=== PATIENT | female | born 1980 | race Caucasian/White ===

== ENCOUNTER → 2016-06-04 | Outpatient (CLI) | payer OTHER, SELFPAY ==
[~2016-06-04] MED LIST: GASTROGRAFIN SOLUTION 30ML (Q9963) As Ordered ONE; ISOVUE-370 76% 100ML VIAL (Q9967) As Ordered ONE
--- NOTE | 2016-06-04 11:42 | REP ---
Clinical: Right lower quadrant pain. Technique: Axial contrast enhanced images from the lung bases to the pubic symphysis using oral and 100 ml Isovue 370 intravenous contrast material with coronal and sagittal re-formations. Findings: Lung bases are clear. Visualized heart and pericardium are normal. Liver, spleen, pancreas, gallbladder, bilateral adrenal glands and kidneys are normal. There is evidence for prior gastric bypass surgery. The enteric system is without obstruction or acute inflammatory process and a normal terminal ileum and appendix are identified in the right lower quadrant. There is a presumed transient and nonacute, nonpathologic small bowel intussusception in the anterior mid abdomen (images 88 - 103) without associated bowel obstruction or mass lesion as lead point. Pelvis demonstrates normal bladder and age-appropriate uterus/left adnexa. Cystic changes to the right ovary are likely physiologic and possibly related to patient's symptoms. No pelvic fluid or ascites. No free air. No adenopathy. Vasculature is normal. Surrounding musculoskeletal structures are intact. Impression: 1. Right lower quadrant pain may be related to cystic changes to the right ovary likely physiologic and correlation is recommended. 2. Normal terminal ileum and appendix in the right lower quadrant and no free fluid, free air or obstruction is appreciated. 3. Likely transient and nonpathologic small bowel intussusception as described above without associated at adenopathy, obstruction, or mass lesion for the point. Signed by Easu Harris MD 06/04/2016 11:33 A
== END ==
LOC: M RAD 09:51
PROVIDERS: ATTEND Physician Assistant
DX: R10.813 Right lower quadrant abdominal tenderness (principal); Z98.84 Bariatric surgery status
CPT/HCPCS: 74177; Q9963; Q9967

== ENCOUNTER → 2018-07-19 | Outpatient (CLI) | payer OTHER ==
--- NOTE | 2018-07-20 02:44 | REP ---
Clinical: Patellofemoral disorder/pain. Technique: AP, lateral, bilateral oblique and sunrise views of the right knee. Findings: Mild arthritic changes of the tibiofemoral joint space include increased sclerosis to the tibial plateau with subtle cortical irregularity and early spurring/osteophyte formation. The joint space is relatively intact and normal. Lateral and sunrise views demonstrate early advanced arthritic changes of the patellofemoral joint. Specifically, there is posterior patellar sclerosis along with lateral subluxation, patellofemoral joint space narrowing, and large bulky lateral patellar osteophyte. There is no evidence for acute fracture or definite effusion. 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 Electronically Signed by Esau Harris MD 07/20/2018 02:36 A
== END ==
LOC: M WUC 18:20
PROVIDERS: ATTEND Physician Assistant
DX: M17.11 Unilateral primary osteoarthritis, right knee (principal); M22.2X1 Patellofemoral disorders, right knee

== ENCOUNTER 2020-10-16 16:08 | Emergency (ER) | payer OTHER ==
[~2020-10-16] VITALS: Ht 170.2 cm; Wt 109.8 kg
[2020-10-16] MEDS ORDERED: MULTTAB61 PO (16:29)
[2020-10-16] MEDS ORDERED: VITA250T7 PO (16:29)
[2020-10-16] MEDS ORDERED: VITAD400CA PO (16:29)
[2020-10-16 18:08] LABS: BASO # 0.1 10^3/uL (0.0-0.2); BASO % 0.7 % (0.0-1.0); EOS # 0.2 10^3/uL (0.0-0.5); HEMATOCRIT 36.9 % (36.0-47.0); HEMOGLOBIN 11.9 g/dl (12.0-15.5); LYMPH # 2.3 10^3/uL (1.5-5.0); LYMPH % 30.4 % (24.0-44.0); MEAN CORPUSCULAR HEMOGLOBIN 24.8 pg (27.0-33.0); MEAN CORPUSCULAR HGB CONC 32.2 g/dl (32.0-36.5); MEAN CORPUSCULAR VOLUME 76.9 fl (80.0-96.0); MONO # 0.8 10^3/uL (0.0-0.8); MONO % 10.1 % (2.0-8.0); NEUTROPHILS # 4.2 10^3/uL (1.5-8.5); NEUTROPHILS % 55.5 % (36.0-66.0); PLATELET COUNT, AUTOMATED 350 10^3/uL (150-450); WHITE BLOOD COUNT 7.6 10^3/uL (4.0-10.0)
[2020-10-16] MEDS ORDERED: ONDANSETRON 4MG/2ML VIAL IV ONE (18:25)
[2020-10-16] MEDS ORDERED: NS 1,000 ML IV ONE (18:25)
[2020-10-16] MEDS ORDERED: KETOROLAC 30 MG/ML 1ML VIAL IV ONE (18:25)
[2020-10-16 18:33] LABS: ALBUMIN 3.5 GM/DL (3.2-5.2); ALT/SGPT 26 U/L (12-78); BILIRUBIN,DIRECT < 0.1 MG/DL (0.0-0.2); BILIRUBIN,TOTAL 0.2 MG/DL (0.2-1.0); BLOOD UREA NITROGEN 10 MG/DL (7-18); CALCIUM LEVEL 8.5 MG/DL (8.5-10.1); CARBON DIOXIDE LEVEL 27 MEQ/L (21-32); CHLORIDE LEVEL 107 MEQ/L (98-107); CREATININE FOR GFR 0.58 MG/DL (0.55-1.30); GLOMERULAR FILTRATION RATE > 60.0 (>58); GLUCOSE, FASTING 81 MG/DL (70-100); LIPASE 177 U/L (73-393); POTASSIUM SERUM 4.2 MEQ/L (3.5-5.1); SODIUM LEVEL 140 MEQ/L (136-145); TOTAL PROTEIN 7.5 GM/DL (6.4-8.2)
--- NOTE | 2020-10-16 19:35 | REP ---
INDICATION: ruq pain COMPARISON: None. TECHNIQUE: Real time dejesus scale ultrasound examination using curved array transducer. FINDINGS: Liver is normal in contour, size, and echogenicity without focal hepatic lesions identified. Pancreas is incompletely evaluated due to interposed bowel gas. The gallbladder include solitary gallstone without wall thickening or pericholecystic fluid. No biliary ductal dilatation is appreciated and the common bile duct measures 4.7 mm diameter. Right kidney is normal in reniform shape without hydronephrosis and measures 11.8 x 5.0 x 4.8 cm. No ascites in the visualized right upper quadrant. IMPRESSION: Cholelithiasis. <Electronically signed by Esau Harris > 10/16/201930
[2020-10-16] MEDS ORDERED: ISOVUE-370 76% 100ML VIAL As Ordered ONE (19:48)
--- NOTE | 2020-10-16 21:46 | REPVR ---
PROCEDURE INFORMATION: Exam: CT Abdomen And Pelvis With Contrast Exam date and time: 10/16/2020 8:20 PM Age: 40 years old Clinical indication: Abdominal pain; Additional info: Upper abd pain TECHNIQUE: Imaging protocol: Computed tomography of the abdomen and pelvis with contrast. Radiation optimization: All CT scans at this facility use at least one of these dose optimization techniques: automated exposure control; mA and/or kV adjustment per patient size (includes targeted exams where dose is matched to clinical indication); or iterative reconstruction. Contrast material: ISOVUE 370; Contrast volume: 100 ml; Contrast route: INTRAVENOUS (IV); COMPARISON: CT ABD PELVIS WITH CONTRAST 06/04/2016 11:15 AM FINDINGS: Mediastinal space: Minimal hiatal hernia. Liver: Minimal hepatic cyst adjacent to the converging hepatic veins measuring 10 mm. The liver attenuation is 80 Hounsfield units and the spleen is 114 Hounsfield units. Gallbladder and bile ducts: Normal. No calcified stones. No ductal dilation. Pancreas: Normal. No ductal dilation. Spleen: Normal. No splenomegaly. Adrenal glands: Normal. No mass. Kidneys and ureters: Normal. No hydronephrosis. Stomach and bowel: There has been gastric bypass with collapse of the bypassed stomach. Left abdominal Andres-en-Y. There are a few sigmoid diverticula without diverticulitis. Appendix: A normal small retrocecal appendix is seen. Intraperitoneal space: Unremarkable. No free air. No significant fluid collection. Vasculature: There is minimal atherosclerotic calcification of the abdominal aorta. Lymph nodes: Unremarkable. No enlarged lymph nodes. Urinary bladder: Unremarkable as visualized. Reproductive: Right ovarian cyst measuring 4.8 x 3.8 x 3.9 cm with internal fluid fluid level suggesting hematocrit effect or hemorrhagic cyst. Bones/joints: Unremarkable. No acute fracture. Soft tissues: Unremarkable. IMPRESSION: 1. Right ovarian cyst measuring 4.8 x 3.8 x 3.9 cm with suggestion of hemorrhagic cyst with hematocrit layering. 2. Status post gastric bypass. 3. Otherwise negative CT abdomen/pelvis. Electronically signed by: Juan Womack On 10/16/2020 21:45:47 PM
[2020-10-16 22:07] VITALS: BP 154/86
[2020-10-16] MEDS ORDERED: OMEP1CAP73 PO (22:36)
[2020-10-16] MEDS ORDERED: GI COCKTAIL 50ML BTL(HYOSCYAMINE/MAALOX/LIDOCAINE VISCOUS)(1:3:1) PO ONE (22:40)
== END 2020-10-16 22:50 | disposition home or self-care (01) ==
LOC: M ED 16:08
DX: R10.13 Epigastric pain (principal); K80.20 Calculus of gallbladder without cholecystitis without obstruction; N83.01 Follicular cyst of right ovary; R11.2 Nausea with vomiting, unspecified; R05 Cough; R51.9 Headache, unspecified; Z98.84 Bariatric surgery status; Z88.1 Allergy status to other antibiotic agents; Z79.899 Other long term (current) drug therapy
CPT/HCPCS: 74177; 76705; 80048; 80076; 81001; 83690; 85025; 96361; 96374; 96375; 99283; J1885; J2405; Q9967

== ENCOUNTER 2022-06-03 07:44 | Inpatient (IN) | payer OTHER ==
[~2022-06-03] VITALS: Ht 167.6 cm; Wt 115.7 kg
[~2022-06-03 07:44] MED LIST changes: -GASTROGRAFIN SOLUTION 30ML (Q9963) As Ordered ONE; -ISOVUE-370 76% 100ML VIAL (Q9967) As Ordered ONE; +MULTTAB61 PO; +OMEP1CAP73 PO; +VITA250T7 PO; +VITAD400CA PO
[2022-06-03] MEDS ORDERED: PROMETHAZINE 25MG/ML 1ML VIAL IV ONE (08:05)
[2022-06-03] MEDS ORDERED: NS 1,000 ML IV ONE ×2 (08:05→09:50)
[2022-06-03 08:32] LABS: BASO % 0.3 % (0.0-1.0); HEMATOCRIT 34.6 % (36.0-47.0); HEMOGLOBIN 10.7 g/dl (12.0-15.5); LYMPH # 1.7 10^3/uL (1.5-5.0); LYMPH % 21.4 % (24.0-44.0); MEAN CORPUSCULAR HEMOGLOBIN 22.3 pg (27.0-33.0); MEAN CORPUSCULAR HGB CONC 30.9 g/dl (32.0-36.5); MEAN CORPUSCULAR VOLUME 72.1 fl (80.0-96.0); MONO # 0.4 10^3/uL (0.0-0.8); MONO % 5.4 % (2.0-8.0); NEUTROPHILS # 5.6 10^3/uL (1.5-8.5); NEUTROPHILS % 72.5 % (36.0-66.0); PLATELET COUNT, AUTOMATED 423 10^3/uL (150-450); WHITE BLOOD COUNT 7.7 10^3/uL (4.0-10.0)
[2022-06-03] MEDS ORDERED: ISOVUE-370 76% 100ML VIAL As Ordered ONE (08:39)
[2022-06-03 08:56] LABS: LIPASE 27 U/L (12-53)
[2022-06-03 09:02] LABS: ALBUMIN 3.2 G/DL (3.2-5.2); ALKALINE PHOSPHATASE 55 U/L (46-116); ALT/SGPT 18 U/L (7.0-40); AST/SGOT 13 U/L (<34); BILIRUBIN,DIRECT < 0.1 MG/DL (<0.4); BILIRUBIN,TOTAL 0.3 MG/DL (0.3-1.2); TOTAL PROTEIN 6.6 G/DL (5.7-8.2)
[2022-06-03 09:18] LABS: RSV AMPLIFICATION NEGATIVE (NEGATIVE)
[2022-06-03] MEDS ORDERED: ONDANSETRON 4MG 2ML VIAL IV ONE (09:50)
[2022-06-03] MEDS: MORPHINE 2 MG/ML 1ML VIAL IV PRN ×4 (09:53→22:40)
[2022-06-03] MEDS ORDERED: CIPROFLOXACIN 400 MG in IV 1 EA IV ONE (09:55)
[2022-06-03] MEDS ORDERED: FLUCONAZOLE 200 MG in IV 1 EA IV ONE (09:55)
[2022-06-03] MEDS ORDERED: metroNIDAZOLE 500 MG in IV 1 EA IV ONE (09:55)
[2022-06-03] MEDS ORDERED: SUCCINYLCHOLINE 100MG/5ML SYRINGE As Ordered ONE (12:51)
[2022-06-03] MEDS ORDERED: propofoL 200 MG/20 ML VIAL As Ordered ONE (12:56)
[2022-06-03] MEDS ORDERED: ROCURONIUM BROMIDE 50MG/5ML VIAL As Ordered ONE (12:56)
[2022-06-03] MEDS ORDERED: LIDOCAINE 2% 100MG/5ML SDV (FOR ANES.) As Ordered ONE (12:56)
[2022-06-03] MEDS ORDERED: BUPIVACAINE/EPIN 0.25% 30ML VIAL As Ordered ONE (12:56)
[2022-06-03] MEDS ORDERED: MORPHINE 10 MG/ML 1ML VIAL As Ordered ONE (12:58)
[2022-06-03] MEDS ORDERED: MIDAZOLAM INJ 2MG/2ML VIAL As Ordered ONE (13:11)
[2022-06-03] MEDS ORDERED: ONDANSETRON 4MG 2ML VIAL As Ordered ONE (13:42)
[2022-06-03] MEDS ORDERED: ACETAMINOPHEN 1000MG 100ML IV BAG As Ordered ONE (14:07)
[2022-06-03] MEDS ORDERED: SUGAMMADEX SODIUM 500 MG/5 ML VIAL (BRIDION) As Ordered ONE (14:20)
[2022-06-03] MEDS ORDERED: ONDANSETRON 4MG 2ML VIAL IV PRN ×2 (14:35→14:55)
[2022-06-03] MEDS ORDERED: METOCLOPRAMIDE INJ 10MG/2ML VIAL IV PRN (14:35)
[2022-06-03] MEDS ORDERED: MEPERIDINE 25 MG/ML 1ML VIAL IV PRN (14:35)
[2022-06-03] MEDS ORDERED: LR 1,000 ML IV SCH (14:35)
[2022-06-03] MEDS ORDERED: oxyCODONE 5MG TAB PO PRN (14:35)
[2022-06-03] MEDS ORDERED: KETOROLAC 30 MG/ML 1ML VIAL IV PRN (14:55)
[2022-06-03] MEDS: HYDROMORPHONE HCL 0.5 MG/ 0.5 ML SYRINGE IV PRN ×2 (15:22→15:43)
[2022-06-03 16:15] VITALS: BP 149/83
[2022-06-03] MEDS: NS 1,000 ML IV SCH ×2 (18:13→22:38)
[2022-06-03] MEDS: metroNIDAZOLE 500 MG in IV 1 EA IV SCH (18:15)
[2022-06-03 20:15] VITALS: BP 138/86
[2022-06-03] MEDS ORDERED: ACET650T61 PO (20:19)
[2022-06-03] MEDS ORDERED: HOME MED LIST COMPLETE! XX SCH (20:20)
[2022-06-03] MEDS: PANTOPRAZOLE 40MG VIAL IV SCH (20:25)
[2022-06-03 21:15] VITALS: BP 144/88
[2022-06-03] MEDS: CIPROFLOXACIN 400 MG in IV 1 EA IV SCH (22:39)
[2022-06-04 01:15] VITALS: BP 142/87
[2022-06-04] MEDS: metroNIDAZOLE 500 MG in IV 1 EA IV SCH ×5 (01:16→22:01)
[2022-06-04 04:15] VITALS: BP 144/82
[2022-06-04] MEDS: MORPHINE 2 MG/ML 1ML VIAL IV PRN ×6 (04:33→22:00)
[2022-06-04 06:49] LABS: HEMATOCRIT 31.2 % (36.0-47.0); HEMOGLOBIN 9.5 g/dl (12.0-15.5); MEAN CORPUSCULAR HEMOGLOBIN 22.5 pg (27.0-33.0); MEAN CORPUSCULAR HGB CONC 30.4 g/dl (32.0-36.5); MEAN CORPUSCULAR VOLUME 73.8 fl (80.0-96.0); RED BLOOD COUNT 4.23 10^6/uL (4.00-5.40); WHITE BLOOD COUNT 14.8 10^3/uL (4.0-10.0)
[2022-06-04 06:53] LABS: PLATELET COUNT, AUTOMATED 309 10^3/uL (150-450)
[2022-06-04 07:28] LABS: ALBUMIN 2.5 G/DL (3.2-5.2); ALKALINE PHOSPHATASE 41 U/L (46-116); ALT/SGPT 24 U/L (7.0-40); AST/SGOT 26 U/L (<34); BILIRUBIN,TOTAL 0.3 MG/DL (0.3-1.2); BLOOD UREA NITROGEN 5 MG/DL (9-23); CARBON DIOXIDE LEVEL 28 MMOL/L (20-31); CHLORIDE LEVEL 105 MMOL/L (98-107); CREATININE FOR GFR 0.51 MG/DL (0.55-1.30); GLOMERULAR FILTRATION RATE > 60.0 (>58); GLUCOSE, FASTING 90 MG/DL (60-100); MAGNESIUM LEVEL 1.7 MG/DL (1.8-2.4); POTASSIUM SERUM 3.8 MMOL/L (3.5-5.1); SODIUM LEVEL 139 MMOL/L (136-145); TOTAL PROTEIN 5.4 G/DL (5.7-8.2)
[2022-06-04 08:15] VITALS: BP 123/88
[2022-06-04] MEDS: ENOXAPARIN 40MG/0.4ML SYRINGE (J1650 PER 10MG) SC SCH (08:24)
[2022-06-04] MEDS: PANTOPRAZOLE 40MG VIAL IV SCH ×2 (08:24→20:41)
[2022-06-04] MEDS ORDERED: MAG SULF 1GM/100ML (MAG RUN) 1 GM in IV 1 EA IV ONE (08:30)
[2022-06-04] MEDS: CIPROFLOXACIN 400 MG in IV 1 EA IV SCH ×2 (10:30→20:41)
[2022-06-04 12:29] VITALS: BP 127/87
[2022-06-04] MEDS: FLUCONAZOLE 100 MG in IV 1 EA IV SCH (13:43)
[2022-06-04] MEDS: NS 1,000 ML IV SCH ×2 (13:43→20:42)
[2022-06-04 14:00] VITALS: BP 133/88
[2022-06-04] MEDS ORDERED: ACETAMINOPHEN 650MG SUPP PR PRN (19:50)
[2022-06-04 20:00] VITALS: BP 142/80
[2022-06-05] MEDS: NS 1,000 ML IV SCH ×2 (00:55→16:05)
[2022-06-05] MEDS: MORPHINE 2 MG/ML 1ML VIAL IV PRN ×4 (02:40→20:28)
[2022-06-05] MEDS: metroNIDAZOLE 500 MG in IV 1 EA IV SCH ×4 (04:47→23:25)
[2022-06-05 06:00] VITALS: BP 144/82
[2022-06-05 06:15] LABS: HEMATOCRIT 30.8 % (36.0-47.0); HEMOGLOBIN 9.6 g/dl (12.0-15.5); MEAN CORPUSCULAR HEMOGLOBIN 22.5 pg (27.0-33.0); MEAN CORPUSCULAR HGB CONC 31.2 g/dl (32.0-36.5); MEAN CORPUSCULAR VOLUME 72.1 fl (80.0-96.0); PLATELET COUNT, AUTOMATED 352 10^3/uL (150-450); RED BLOOD COUNT 4.27 10^6/uL (4.00-5.40)
[2022-06-05 06:49] LABS: ALBUMIN 2.3 G/DL (3.2-5.2); ALKALINE PHOSPHATASE 56 U/L (46-116); ALT/SGPT 20 U/L (7.0-40); AST/SGOT 13 U/L (<34); BILIRUBIN,TOTAL 0.4 MG/DL (0.3-1.2); BLOOD UREA NITROGEN 8 MG/DL (9-23); CALCIUM LEVEL 8.6 MG/DL (8.5-10.1); CARBON DIOXIDE LEVEL 29 MMOL/L (20-31); CHLORIDE LEVEL 102 MMOL/L (98-107); CREATININE FOR GFR 0.58 MG/DL (0.55-1.30); GLOMERULAR FILTRATION RATE > 60.0 (>58); GLUCOSE, FASTING 85 MG/DL (60-100); MAGNESIUM LEVEL 1.8 MG/DL (1.8-2.4); POTASSIUM SERUM 3.5 MMOL/L (3.5-5.1); SODIUM LEVEL 137 MMOL/L (136-145); TOTAL PROTEIN 5.6 G/DL (5.7-8.2)
[2022-06-05 08:00] VITALS: BP 147/89
[2022-06-05] MEDS: ENOXAPARIN 40MG/0.4ML SYRINGE (J1650 PER 10MG) SC SCH (09:50)
[2022-06-05] MEDS: CIPROFLOXACIN 400 MG in IV 1 EA IV SCH ×2 (10:27→20:28)
[2022-06-05] MEDS: PANTOPRAZOLE 40MG VIAL IV SCH ×2 (10:39→20:27)
[2022-06-05] MEDS ORDERED: BISACODYL 10MG SUPP PR ONE (11:40)
[2022-06-05] MEDS: FLUCONAZOLE 100 MG in IV 1 EA IV SCH (13:57)
[2022-06-05 14:29] VITALS: BP 148/89
[2022-06-05 20:00] VITALS: BP 146/88
[2022-06-05] MEDS ORDERED: ANALGESIC BALM CRM 3OZ TOP PRN (20:45)
[2022-06-06] MEDS: NS 1,000 ML IV SCH ×2 (03:35→16:55)
[2022-06-06] MEDS: metroNIDAZOLE 500 MG in IV 1 EA IV SCH ×4 (04:37→22:31)
[2022-06-06 06:00] VITALS: BP 146/88
[2022-06-06] MEDS: MORPHINE 2 MG/ML 1ML VIAL IV PRN ×3 (06:11→22:30)
[2022-06-06 06:16] LABS: HEMATOCRIT 30.9 % (36.0-47.0); HEMOGLOBIN 9.8 g/dl (12.0-15.5); MEAN CORPUSCULAR HEMOGLOBIN 22.4 pg (27.0-33.0); MEAN CORPUSCULAR HGB CONC 31.7 g/dl (32.0-36.5); MEAN CORPUSCULAR VOLUME 70.7 fl (80.0-96.0); PLATELET COUNT, AUTOMATED 382 10^3/uL (150-450); RED BLOOD COUNT 4.37 10^6/uL (4.00-5.40); WHITE BLOOD COUNT 11.9 10^3/uL (4.0-10.0)
[2022-06-06 06:43] LABS: ALBUMIN 2.2 G/DL (3.2-5.2); ALKALINE PHOSPHATASE 50 U/L (46-116); ALT/SGPT 13 U/L (7.0-40); AST/SGOT 12 U/L (<34); BILIRUBIN,TOTAL 0.4 MG/DL (0.3-1.2); BLOOD UREA NITROGEN 6 MG/DL (9-23); CALCIUM LEVEL 8.3 MG/DL (8.5-10.1); CARBON DIOXIDE LEVEL 28 MMOL/L (20-31); CHLORIDE LEVEL 101 MMOL/L (98-107); CREATININE FOR GFR 0.48 MG/DL (0.55-1.30); GLOMERULAR FILTRATION RATE > 60.0 (>58); GLUCOSE, FASTING 97 MG/DL (60-100); MAGNESIUM LEVEL 1.7 MG/DL (1.8-2.4); POTASSIUM SERUM 3.4 MMOL/L (3.5-5.1); SODIUM LEVEL 136 MMOL/L (136-145); TOTAL PROTEIN 5.6 G/DL (5.7-8.2)
[2022-06-06] MEDS: PANTOPRAZOLE 40MG VIAL IV SCH ×2 (09:10→20:56)
[2022-06-06] MEDS: ENOXAPARIN 40MG/0.4ML SYRINGE (J1650 PER 10MG) SC SCH (09:10)
[2022-06-06] MEDS: CIPROFLOXACIN 400 MG in IV 1 EA IV SCH ×2 (09:10→20:57)
[2022-06-06] MEDS: FLUCONAZOLE 100 MG in IV 1 EA IV SCH (12:30)
[2022-06-06 14:00] VITALS: BP 140/89
[2022-06-06 22:00] VITALS: BP 152/91
[2022-06-07] MEDS: NS 1,000 ML IV SCH (05:16)
[2022-06-07] MEDS: metroNIDAZOLE 500 MG in IV 1 EA IV SCH ×3 (05:16→17:20)
[2022-06-07 06:00] VITALS: BP 153/95
[2022-06-07] MEDS: MORPHINE 2 MG/ML 1ML VIAL IV PRN (06:07)
[2022-06-07 06:17] LABS: HEMATOCRIT 32.4 % (36.0-47.0); HEMOGLOBIN 10.1 g/dl (12.0-15.5); MEAN CORPUSCULAR HEMOGLOBIN 22.2 pg (27.0-33.0); MEAN CORPUSCULAR HGB CONC 31.2 g/dl (32.0-36.5); MEAN CORPUSCULAR VOLUME 71.4 fl (80.0-96.0); PLATELET COUNT, AUTOMATED 436 10^3/uL (150-450); RED BLOOD COUNT 4.54 10^6/uL (4.00-5.40); WHITE BLOOD COUNT 9.3 10^3/uL (4.0-10.0)
[2022-06-07 06:51] LABS: ALBUMIN 2.3 G/DL (3.2-5.2); ALKALINE PHOSPHATASE 51 U/L (46-116); ALT/SGPT 12 U/L (7.0-40); AST/SGOT 13 U/L (<34); BILIRUBIN,TOTAL 0.3 MG/DL (0.3-1.2); BLOOD UREA NITROGEN < 5 MG/DL (9-23); CALCIUM LEVEL 8.1 MG/DL (8.5-10.1); CARBON DIOXIDE LEVEL 29 MMOL/L (20-31); CHLORIDE LEVEL 100 MMOL/L (98-107); CREATININE FOR GFR 0.49 MG/DL (0.55-1.30); GLOMERULAR FILTRATION RATE > 60.0 (>58); GLUCOSE, FASTING 91 MG/DL (60-100); MAGNESIUM LEVEL 1.7 MG/DL (1.8-2.4); POTASSIUM SERUM 3.3 MMOL/L (3.5-5.1); SODIUM LEVEL 136 MMOL/L (136-145); TOTAL PROTEIN 5.7 G/DL (5.7-8.2)
[2022-06-07] MEDS: PANTOPRAZOLE 40MG VIAL IV SCH (08:08)
[2022-06-07] MEDS: ENOXAPARIN 40MG/0.4ML SYRINGE (J1650 PER 10MG) SC SCH (08:08)
[2022-06-07] MEDS: PANTOPRAZOLE 40MG TAB (PROTONIX) PO SCH ×2 (09:00→21:37)
[2022-06-07] MEDS ORDERED: MAG SULF 1GM/100ML (MAG RUN) 1 GM in IV 1 EA IV ONE (09:05)
[2022-06-07] MEDS ORDERED: POTASSIUM CHLORIDE 10MEQ SR TABLET PO ONE (09:05)
[2022-06-07] MEDS ORDERED: NORCO, ANEXSIA 5/325MG TABLET (HYDROcodone/ACETAMINOPHEN) PO PRN (09:05)
[2022-06-07] MEDS: CIPROFLOXACIN 400 MG in IV 1 EA IV SCH ×2 (11:24→21:38)
[2022-06-07] MEDS: SUCRALFATE 1 GM TAB PO SCH ×3 (12:36→21:37)
[2022-06-07] MEDS: FLUCONAZOLE 100 MG in IV 1 EA IV SCH (13:36)
[2022-06-07 14:00] VITALS: BP 152/68
[2022-06-07 20:00] VITALS: BP 154/95
[2022-06-08] MEDS: metroNIDAZOLE 500 MG in IV 1 EA IV SCH ×2 (00:53→05:16)
[2022-06-08 06:00] VITALS: BP 150/97
[2022-06-08 06:26] LABS: HEMATOCRIT 28.6 % (36.0-47.0); MEAN CORPUSCULAR HEMOGLOBIN 22.2 pg (27.0-33.0); MEAN CORPUSCULAR HGB CONC 31.5 g/dl (32.0-36.5); MEAN CORPUSCULAR VOLUME 70.6 fl (80.0-96.0); PLATELET COUNT, AUTOMATED 388 10^3/uL (150-450); RED BLOOD COUNT 4.05 10^6/uL (4.00-5.40); WHITE BLOOD COUNT 7.7 10^3/uL (4.0-10.0)
[2022-06-08 07:03] LABS: ALBUMIN 2.2 G/DL (3.2-5.2); ALKALINE PHOSPHATASE 45 U/L (46-116); ALT/SGPT 11 U/L (7.0-40); AST/SGOT 10 U/L (<34); BILIRUBIN,TOTAL 0.3 MG/DL (0.3-1.2); BLOOD UREA NITROGEN < 5 MG/DL (9-23); CALCIUM LEVEL 7.9 MG/DL (8.5-10.1); CARBON DIOXIDE LEVEL 27 MMOL/L (20-31); CHLORIDE LEVEL 103 MMOL/L (98-107); CREATININE FOR GFR 0.48 MG/DL (0.55-1.30); GLOMERULAR FILTRATION RATE > 60.0 (>58); GLUCOSE, FASTING 98 MG/DL (60-100); MAGNESIUM LEVEL 1.8 MG/DL (1.8-2.4); POTASSIUM SERUM 3.5 MMOL/L (3.5-5.1); SODIUM LEVEL 138 MMOL/L (136-145); TOTAL PROTEIN 5.2 G/DL (5.7-8.2)
[2022-06-08] MEDS: ENOXAPARIN 40MG/0.4ML SYRINGE (J1650 PER 10MG) SC SCH (09:00)
[2022-06-08] MEDS ORDERED: CIPR-249 PO (09:03)
[2022-06-08] MEDS ORDERED: METR-265 PO (09:03)
[2022-06-08] MEDS ORDERED: PANT40TA29 PO (09:03)
[2022-06-08] MEDS ORDERED: SUCR1TA PO (09:03)
[2022-06-08] MEDS: SUCRALFATE 1 GM TAB PO SCH (09:10)
[2022-06-08] MEDS: PANTOPRAZOLE 40MG TAB (PROTONIX) PO SCH (09:10)
== END 2022-06-08 10:44 | disposition home or self-care (01) | DRG 222 ==
LOC: EDBD 07:44 → M ED 07:44 → M ED INP 11:00 → M MSPAV 16:42
PROVIDERS: ADMIT Surgery; ATTEND Surgery
PROC: 0WJG4ZZ Inspection of Peritoneal Cavity, Percutaneous Endoscopic Approach (ICD-10-PCS; 2022-06-03)
PROC: 8E0W4CZ Robotic Assisted Procedure of Trunk Region, Percutaneous Endoscopic Approach (ICD-10-PCS; 2022-06-03)
PROC: 0DQ64ZZ Repair Stomach, Percutaneous Endoscopic Approach (ICD-10-PCS; principal; 2022-06-03 12:30)
DX: K25.5 Chronic or unspecified gastric ulcer with perforation (principal); K65.9 Peritonitis, unspecified; Z68.41 Body mass index [BMI] 40.0-44.9, adult; E83.42 Hypomagnesemia; Z88.0 Allergy status to penicillin; Z88.8 Allergy status to other drugs, medicaments and biological substances; Z88.6 Allergy status to analgesic agent; Z79.899 Other long term (current) drug therapy; E87.6 Hypokalemia

== ENCOUNTER → 2022-08-16 | Outpatient (CLI) | payer OTHER ==
[~2022-08-16] MED LIST changes: +ACET650T61 PO; +CIPR-249 PO; +E-Z-GAS II EFFERVESCENT PACKET (SODIUM BICARB./CITRIC ACID/SIMETHICONE) As Ordered ONE; +E-Z-HD 98% w/w 340GM SUSP BTL As Ordered ONE; +E-Z-PAQUE 96% w/w SUSP 176GM BTL As Ordered ONE; +METR-265 PO; +PANT40TA29 PO; +SUCR1TA PO
== END ==
LOC: M RAD 09:26
PROVIDERS: ATTEND Surgery
DX: K44.9 Diaphragmatic hernia without obstruction or gangrene (principal)

== ENCOUNTER 2022-09-15 09:24 | Day surgery (SDC) | payer OTHER ==
[~2022-09-15] VITALS: Ht 167.6 cm; Wt 100.2 kg
[~2022-09-15 09:24] MED LIST changes: -E-Z-GAS II EFFERVESCENT PACKET (SODIUM BICARB./CITRIC ACID/SIMETHICONE) As Ordered ONE; -E-Z-HD 98% w/w 340GM SUSP BTL As Ordered ONE; -E-Z-PAQUE 96% w/w SUSP 176GM BTL As Ordered ONE; +NS 1,000 ML IV ONE; +OMEP40CA4 PO
[2022-09-15] MEDS ORDERED: propofoL 200 MG/20 ML VIAL As Ordered ONE (10:45)
[2022-09-15] MEDS ORDERED: fentaNYL 100 MCG/2 ML INJECTION As Ordered ONE (10:45)
[2022-09-15 10:56] VITALS: TEMP 97.1
[2022-09-15 11:25] VITALS: BP 32/83; O2SAT 99
== END 2022-09-15 11:37 | disposition home or self-care (01) ==
LOC: M OPP 09:24
PROVIDERS: ATTEND Surgery
DX: K28.5 Chronic or unspecified gastrojejunal ulcer with perforation (principal); K21.9 Gastro-esophageal reflux disease without esophagitis; F17.200 Nicotine dependence, unspecified, uncomplicated; Z98.84 Bariatric surgery status; Z88.1 Allergy status to other antibiotic agents; Z88.6 Allergy status to analgesic agent; Z79.899 Other long term (current) drug therapy
CPT/HCPCS: 43239; 88305; J3010

== ENCOUNTER → 2023-09-26 | Outpatient (REF) | payer OTHER ==
[~2023-09-26] MED LIST changes: +CYAN100049 PO; +FERR32TA PO; +MULT-90 PO; -NS 1,000 ML IV ONE; +VITA100093 PO
[2023-09-26 17:44] LABS: IRON (FE) 38 UG/DL (50-170); PERCENT SATURATION 9.5 % (13.2-45.0); TOTAL IRON BINDING CAPACITY 402 UG/DL (250-425)
[2023-09-26 17:45] LABS: ALBUMIN 3.6 G/DL (3.2-5.2); ALKALINE PHOSPHATASE 69 U/L (46-116); ALT/SGPT 25 U/L (7.0-40); AST/SGOT 16 U/L (<34); BILIRUBIN,TOTAL 0.2 MG/DL (0.3-1.2); BLOOD UREA NITROGEN 12 MG/DL (9-23); CALCIUM LEVEL 9.1 MG/DL (8.5-10.1); CARBON DIOXIDE LEVEL 27 MMOL/L (20-31); CHLORIDE LEVEL 111 MMOL/L (98-107); CREATININE FOR GFR 0.67 MG/DL (0.55-1.30); GLOMERULAR FILTRATION RATE > 60.0 (>58); GLUCOSE, FASTING 90 MG/DL (60-100); POTASSIUM SERUM 4.5 MMOL/L (3.5-5.1); SODIUM LEVEL 144 MMOL/L (136-145); TOTAL PROTEIN 6.7 G/DL (5.7-8.2)
[2023-09-26 17:47] LABS: FERRITIN 5.5 NG/ML (7.3-270.7)
[2023-09-26 17:57] LABS: BASO # 0.1 10^3/uL (0.0-0.2); BASO % 0.6 % (0.0-1.0); EOS # 0.2 10^3/uL (0.0-0.5); EOS % 2.5 % (0.0-3.0); HEMOGLOBIN 14.7 g/dl (12.0-15.5); LYMPH # 2.5 10^3/uL (1.5-5.0); LYMPH % 27.7 % (24.0-44.0); MEAN CORPUSCULAR HEMOGLOBIN 29.6 pg (27.0-33.0); MEAN CORPUSCULAR HGB CONC 32.7 g/dl (32.0-36.5); MEAN CORPUSCULAR VOLUME 90.7 fl (80.0-96.0); MONO # 0.6 10^3/uL (0.0-0.8); MONO % 7.1 % (2.0-8.0); NEUTROPHILS # 5.6 10^3/uL (1.5-8.5); NEUTROPHILS % 61.9 % (36.0-66.0); PLATELET COUNT, AUTOMATED 287 10^3/uL (150-450); RED BLOOD COUNT 4.96 10^6/uL (4.00-5.40)
== END ==
LOC: M LABWUC 16:26
PROVIDERS: ATTEND Internal Medicine Medical Oncology
DX: D50.9 Iron deficiency anemia, unspecified (principal)

== ENCOUNTER → 2024-03-19 | Outpatient (CLI) | payer OTHER ==
[2024-03-19 18:44] LABS: BASO % 0.6 % (0.0-1.0); EOS # 0.3 10^3/uL (0.0-0.5); HEMATOCRIT 43.1 % (36.0-47.0); HEMOGLOBIN 14.5 g/dl (12.0-15.5); LYMPH % 30.2 % (24.0-44.0); MEAN CORPUSCULAR HEMOGLOBIN 30.1 pg (27.0-33.0); MEAN CORPUSCULAR HGB CONC 33.6 g/dl (32.0-36.5); MEAN CORPUSCULAR VOLUME 89.4 fl (80.0-96.0); MONO # 0.8 10^3/uL (0.0-0.8); MONO % 11.6 % (2.0-8.0); NEUTROPHILS # 3.5 10^3/uL (1.5-8.5); NEUTROPHILS % 53.3 % (36.0-66.0); PLATELET COUNT, AUTOMATED 267 10^3/uL (150-450); RED BLOOD COUNT 4.82 10^6/uL (4.00-5.40); WHITE BLOOD COUNT 6.5 10^3/uL (4.0-10.0)
[2024-03-19 19:16] LABS: TOTAL IRON BINDING CAPACITY 346 UG/DL (250-425)
[2024-03-19 19:18] LABS: ALBUMIN 3.4 G/DL (3.2-5.2); ALKALINE PHOSPHATASE 58 U/L (35-104); ALT/SGPT 21 U/L (7.0-40); AST/SGOT 14 U/L (<34); BILIRUBIN,TOTAL 0.2 MG/DL (0.3-1.2); BLOOD UREA NITROGEN 9 MG/DL (9-23); CALCIUM LEVEL 9.2 MG/DL (8.5-10.1); CARBON DIOXIDE LEVEL 24 MMOL/L (20-31); CHLORIDE LEVEL 107 MMOL/L (98-107); CREATININE FOR GFR 0.54 MG/DL (0.55-1.30); FERRITIN 28.6 NG/ML (7.3-270.7); GLOMERULAR FILTRATION RATE > 60.0 (>58); GLUCOSE, FASTING 89 MG/DL (60-100); IRON (FE) 44 UG/DL (50-170); PERCENT SATURATION 12.7 % (13.2-45.0); POTASSIUM SERUM 4.3 MMOL/L (3.5-5.1); SODIUM LEVEL 140 MMOL/L (136-145); TOTAL PROTEIN 6.7 G/DL (5.7-8.2)
== END ==
LOC: M WUC 15:27
PROVIDERS: ATTEND Internal Medicine Medical Oncology
DX: D50.9 Iron deficiency anemia, unspecified (principal)

== ENCOUNTER → 2024-04-18 | Outpatient (CLI) | payer OTHER | LOC: M WHC 09:30 | PROVIDERS: ATTEND Nurse Practitioner Family | DX: N64.4 Mastodynia (principal); N63.22 Unspecified lump in the left breast, upper inner quadrant ==

== ENCOUNTER 2024-04-23 15:25 | Outpatient (CLI) | payer OTHER ==
[~2024-04-23] VITALS: Ht 167.6 cm; Wt 93.2 kg
[~2024-04-23 15:25] MED LIST changes: +ALBUTEROL SULFATE 2.5MG/0.5ML INH NEB SOLN INH PRN; +EPINEPHrine INJ 1 MG/ML 1ML AMP IM PRN
[2024-04-23] MEDS: FERRIC CARBOXYMALTOSE 750 MG (VIAL MATE) IN 100ML NS IV ONE (15:44)
[2024-04-23 15:45] VITALS: BP 160/91; O2SAT 97
[2024-04-23] MEDS: diphenhydrAMINE 50MG/ML VIAL IV PRN (16:09)
[2024-04-23] MEDS: methylPREDNISolone 125MG 2ML VIAL IV PRN (16:09)
[2024-04-23 16:40] VITALS: BP 146/84; O2SAT 94
== END 2024-04-23 16:40 ==
LOC: M INFU 15:25
PROVIDERS: ATTEND Internal Medicine Hematology
DX: D50.9 Iron deficiency anemia, unspecified (principal); Z98.84 Bariatric surgery status; Z88.1 Allergy status to other antibiotic agents; Z88.6 Allergy status to analgesic agent
CPT/HCPCS: 96365; 96375; J1200; J1439; J2919

== ENCOUNTER → 2024-06-20 | Outpatient (CLI) | payer OTHER ==
[~2024-06-20] MED LIST changes: -ALBUTEROL SULFATE 2.5MG/0.5ML INH NEB SOLN INH PRN; -EPINEPHrine INJ 1 MG/ML 1ML AMP IM PRN
== END ==
LOC: M RAD 16:14
PROVIDERS: ATTEND Emergency Medicine
DX: N92.0 Excessive and frequent menstruation with regular cycle (principal)